=== PATIENT | female | born 1945 | race Caucasian/White ===

== ENCOUNTER → 2016-12-31 | Outpatient (CLI) | payer MEDICARE ==
[~2016-12-31] MED LIST: ADVA100A INH; CALC1TAB87 PO; HYDR-3516 PO; MULT-65 PO
[2016-12-31 09:26] LABS: AUTOMATED NEUTROPHIL # 2.6 TH/MM3 (1.8-7.7); BASOPHIL % 0.8 % (0.0-2.0); EOSINOPHIL # 0.1 TH/MM3 (0-0.4); EOSINOPHIL % 1.9 % (0.0-4.0); HEMATOCRIT 41.3 % (35.0-46.0); HEMO FLAGS DIFF FINAL; LYMPH % 29.6 % (9.0-44.0); LYMPHOCYTE # 1.3 TH/MM3 (1.0-4.8); MEAN CELL VOLUME 87.7 FL (80.0-100.0); MEAN CORPUSCULAR HEMOGLOBIN 29.2 PG (27.0-34.0); MEAN CORPUSCULAR HGB CONC 33.3 % (32.0-36.0); MONO % 6.6 % (0.0-8.0); NEUT % 61.1 % (16.0-70.0); PLATELET COUNT 287 TH/MM3 (150-450); RED BLOOD COUNT 4.71 MIL/MM3 (4.00-5.30); RED CELL DISTRIBUTION WIDTH 13.5 % (11.6-17.2); WHITE BLOOD COUNT 4.2 TH/MM3 (4.0-11.0)
[2016-12-31 09:29] LABS: APTT (PATIENT) 26.7 SEC (24.3-30.1); INTERNATIONAL NORMALIZED RATIO 0.9 RATIO; PROTHROMBIN TIME - PATIENT 10.3 SEC (9.8-11.6)
[2016-12-31 09:55] LABS: ANION GAP 7 MEQ/L (5-15); AST (GOT) 19 U/L (15-37); BICARBONATE 27.7 MEQ/L (21.0-32.0); BLOOD UREA NITROGEN 15 MG/DL (7-18); CHLORIDE 104 MEQ/L (98-107); GLOMERULAR FILTRATION RATE 79 ML/MIN (>89); GLUCOSE,FASTING 99 MG/DL (74-99); POTASSIUM 3.8 MEQ/L (3.5-5.1); SODIUM (NA) 139 MEQ/L (136-145)
[2016-12-31 09:56] LABS: ALT (GPT) 22 U/L (10-53)
[2016-12-31 09:58] LABS: ALKALINE PHOSPHATASE 77 U/L (45-117); TOTAL BILIRUBIN ADULT 0.5 MG/DL (0.2-1.0)
[2016-12-31 10:05] LABS: BLOOD, URINE NEG (NEG); GLUCOSE,URINE NEG (NEG); KETONE, URINE NEG (NEG); NITRITE,URINE NEG (NEG); PH, URINE 6.5 (5.0-8.5); URINE COLOR YELLOW (YELLW/STRAW)
[2016-12-31 10:07] LABS: COMMENT (UR) CULT NOT INDICATED; CULTURE IF INDICATED CULT NOT INDICATED
--- NOTE | 2016-12-31 10:14 | RADRPT ---
EXAM DATE/TIME: 12/31/2016 09:03 [place] COMPARISON: No previous studies available for comparison. INDICATIONS : Evaluate for pneumonia, pneumothorax or communicable disease. Pre op colon resection. MEDICAL HISTORY : asthma SURGICAL HISTORY : None. ENCOUNTER: Initial ACUITY: 1 day PAIN SCORE: 0/10 LOCATION: Bilateral chest FINDINGS: Lungs are hyperinflated. Mild central interstitial prominence is noted. Pleural-parenchymal scarring is seen both apices. There is no evidence of consolidating airspace disease or suspicious mass densities. There are no ple ural effusions. Heart and mediastinal structures are unremarkable. CONCLUSION: 1. COPD with chronic central interstitial disease. 2. No evidence of acute consolidating airspace disease Saul Ruiz MD on December 31, 2016 at 10:11 Board Certified Radiologist. This report was verified electronically.
--- NOTE | 2016-12-31 13:20 | EKG ---
Date Performed: 12/31/2016 Time Performed: 08:24:04 PTAGE: 71 years EKG: SINUS BRADYCARDIA POSSIBLE RIGHT VENTRICULAR CONDUCTION DELAY NONSPECIFIC T-WAVE ABNORMALIT Y BORDERLINE ECG NO PREVIOUS TRACING DOCTOR: Malick Bravo Interpretating Date/Time 12/31/2016 13:17:48
== END ==
LOC: CPRE 08:00
PROVIDERS: ATTEND Colon & Rectal Surgery
DX: Z01.812 Encounter for preprocedural laboratory examination (principal); Z01.810 Encounter for preprocedural cardiovascular examination; Z01.811 Encounter for preprocedural respiratory examination; K57.32 Diverticulitis of large intestine without perforation or abscess without bleeding
CPT/HCPCS: 36415; 71020; 80053; 81001; 85025; 85610; 85730; 93005

== ENCOUNTER 2017-01-07 08:17 | Inpatient (IN) | payer MEDICARE ==
[~2017-01-07] VITALS: Ht 160 cm; Wt 60.9 kg
[~2017-01-07 08:17] MED LIST changes: -HYDR-3516 PO
--- NOTE | 2017-01-07 13:06 | PD.HP.UP ---
H&P Update Note The Pre-Admit History and Physical Examination regarding the above named patient was reviewed (including, but not limited to, vital signs, heart, lungs, co-morbid conditions), and upon re-examination it is noted that: the patient's condition has not significantly changed since the last examination. Chaz Causey MD Jan 07, 2017 13:06
[2017-01-07] MEDS ORDERED: ceFAZolin 1,000 MG/NS 100 ML IV SCH ×2 (13:15)
[2017-01-07] MEDS ORDERED: CHLORHEXIDINE GLUCONATE 2 % 1 PACK (2 CLOTHS) TOPICAL PRN (13:15)
[2017-01-07] MEDS ORDERED: METRONIDAZOLE 500 MG/100 ML ISONTONIC SOLN IV SCH (13:15)
[2017-01-07] MEDS ORDERED: INSULIN HUMAN REGULAR 1,000 UNITS/10 ML VIAL SQ PRN (13:15)
[2017-01-07] MEDS ORDERED: ALVIMOPAN 12 MG CAPSULE - On Call PO SCH (13:15)
[2017-01-07] MEDS ORDERED: METOPROLOL TARTRATE 25 MG TAB PO PRN (13:15)
[2017-01-07] MEDS ORDERED: LACTATED RINGER'S 1000 ML IV PRN (13:15)
[2017-01-07] MEDS ORDERED: SODIUM CHLORID 0.9% 500 ML IV PRN (13:15)
[2017-01-07] MEDS ORDERED: POVIDONE IODINE 5% (ANTISEPSIS KIT) 4 APPLICATIONS EACH NARE PRN (13:15)
[2017-01-07] MEDS ORDERED: BUPIVACAINE HCL PF 0.5% 30 ML VIAL ONE (13:16)
[2017-01-07] MEDS ORDERED: DEXT 5%-NACL 0.9% 1000 ML INJ 1,000 ML IV SCH (13:30)
--- NOTE | 2017-01-07 14:54 | PD.OP ---
Operative Report Date of Surgery: Jan 07, 2017 Preoperative Diagnosis: (1) Diverticulitis Postoperative Diagnosis: (1) Diverticulitis Procedure: Cystoscopy and placement of bilateral ureteral catheters Anesthesia: General Surgeon: Cornell Dias Shelver(s): None Operation and Findings: Indication for procedures: Consult intraoperatively to pass bilateral ureteral catheters to aid in visualization of this patient's ureters during her colorectal procedure. Urologic procedures in detail: Concurred with the colorectal surgeons, I proceeded with cystoscopy and placement of bilateral ureteral catheters as follows: Initially cystoscopic evaluation was performed utilizing the rigid cystoscope with the 22 Turkish sheath and 30 lens. Both right and left ureteral orifices were in correct anatomic position effluxing clear yellow urine , there were no bladder mucosal lesions, calculi or diverticula formation. I then proceeded to pass a sensor 0.035 wire of the patient's left ureter to a small amount of resistance was met. A 6 Turkish open-ended catheter was then advanced over this wire 25 cm in a cephalad direction. With the catheter placed the guidewire was withdrawn and reintroduced through a secondary site of the cystoscope. In similar fashion, the contralateral side was accomplished. With both catheters in place, the cystoscope and wire withdrawn and a 16 Turkish 10 cc Johnson catheter was placed. Both ureteral catheters were next anchored to the Johnson via a connector in all 3 catheters placed to gravity drainage. This completes urologic surgery portion of combined procedures on this patient. Cornell Dias MD Jan 07, 2017 14:54
[2017-01-07] MEDS ORDERED: SUGAMMADEX SODIUM 200 MG/2 ML VIAL IV PUSH ONE ×2 (15:34)
[2017-01-07] MEDS ORDERED: BUPIVACAINE HCL PF 0.5% 30 ML VIAL INFIL ONE (15:36)
[2017-01-07] MEDS ORDERED: BUPIVACAINE HCL PF 0.5% 30 ML VIAL NB SCH (16:00)
[2017-01-07] MEDS ORDERED: POTASSIUM CHLOR 40 MEQ PREMIX 100 ML IV PRN (16:00)
[2017-01-07] MEDS ORDERED: ACETAMINOPHEN 325 MG TAB PO PRN (16:00)
[2017-01-07] MEDS ORDERED: POTASSIUM CHLOR 20 MEQ PREMIX 100 ML IV PRN (16:00)
[2017-01-07] MEDS ORDERED: MORPHINE SULFATE 30 MG/30 ML PCA IV SCH (16:00)
[2017-01-07] MEDS ORDERED: Post-op Orders (for Pharmacy) MISC XX ONE (16:00)
[2017-01-07] MEDS ORDERED: ENALAPRILAT 2.5 MG/2 ML VIAL IV PUSH PRN (16:00)
[2017-01-07] MEDS ORDERED: KETOROLAC TROMETHAMINE 30 MG/ML (IVP) VIAL IVP PRN (16:00)
[2017-01-07] MEDS ORDERED: SODIUM CHLORIDE 0.9% FLUSH 5 ML FLUSH IVF PRN (16:00)
[2017-01-07] MEDS ORDERED: NALOXONE HCL 0.4 MG/ML AMP IV PUSH PRN (16:00)
[2017-01-07] MEDS ORDERED: ACETAMINOPHEN/HYDROcodone 325 MG/5 MG TAB PO PRN ×2 (16:00)
[2017-01-07] MEDS ORDERED: BENZOCAINE 6 MG/MENTHOL 10 MG LOZENGE BUCCAL PRN (16:00)
[2017-01-07] MEDS ORDERED: ENALAPRILAT 1.25 MG/ML VIAL IV PUSH PRN (16:00)
[2017-01-07] MEDS ORDERED: *morphine SULFATE 8 MG/ML PERIprocedure ONLY ONE ×3 (16:32→17:33)
[2017-01-07] MEDS: D5-NS + KCL 20 MEQ INJ 1,000 ML IV SCH ×2 (16:40→22:16)
[2017-01-07] MEDS ORDERED: *ONDANSETRON 4 MG VIAL PERIprocedural Use ONLY ONE ×2 (17:33→21:10)
[2017-01-07] MEDS ORDERED: *HYDROmorphone PF 1 MG VIAL PERIprocedural Use ONLY ONE (17:46)
[2017-01-07] MEDS: BUDESONIDE-FORMOTEROL 80/4.5 MCG INHALER INH SCH (21:00)
[2017-01-07] MEDS: SODIUM CHLORIDE 0.9% FLUSH 5 ML FLUSH IVF SCH (21:00)
[2017-01-07] MEDS ORDERED: NON-FORMULARY DRUG (Fluticasone-Salmeterol Inh (Advair Diskus Inh) 1 PUFF) INH SCH (21:00)
[2017-01-07 21:30] VITALS: BP 127/79; PULSE 93; RESP 18; TEMP 97.9; O2SAT 100
[2017-01-07 22:00] VITALS: PULSE 90
[2017-01-07] MEDS: PCA - TOTAL MG MORPHINE DELIVERED PER SHIFT SCH (22:00)
[2017-01-07] MEDS: metroNIDAZOLE 500 MG INJ 100 ML IV SCH (22:06)
[2017-01-07] MEDS: METOCLOPRAMIDE HCL 10 MG/2 ML VIAL IVS SCH (22:06)
[2017-01-07 23:00] VITALS: PULSE 92
[2017-01-07 23:30] VITALS: BP 145/81; PULSE 106; RESP 16; TEMP 97.6; O2SAT 100
[2017-01-08] VITALS (22 sets, daily range): BP systolic 114–148; BP diastolic 59–68; PULSE 55–96; RESP 15–18; TEMP 97.4–99.1; O2SAT 18–100
[2017-01-08] MEDS: D5-NS + KCL 20 MEQ INJ 1,000 ML IV SCH ×4 (04:19→23:41)
[2017-01-08] MEDS: ONDANSETRON HCL 4 MG/2 ML VIAL IV PUSH PRN ×3 (04:53→19:50)
[2017-01-08] MEDS: PCA - TOTAL MG MORPHINE DELIVERED PER SHIFT SCH ×3 (06:00→21:38)
[2017-01-08] MEDS: metroNIDAZOLE 500 MG INJ 100 ML IV SCH ×2 (06:09→13:29)
[2017-01-08 06:45] LABS: BASOPHIL % 0.1 % (0.0-2.0); HEMATOCRIT 37.6 % (35.0-46.0); HEMO FLAGS DIFF FINAL; LYMPH % 3.3 % (9.0-44.0); LYMPHOCYTE # 0.4 TH/MM3 (1.0-4.8); MEAN CORPUSCULAR HGB CONC 33.3 % (32.0-36.0); MONO % 6.4 % (0.0-8.0); NEUT % 90.2 % (16.0-70.0); PLATELET COUNT 296 TH/MM3 (150-450); RED BLOOD COUNT 4.32 MIL/MM3 (4.00-5.30); RED CELL DISTRIBUTION WIDTH 13.4 % (11.6-17.2); WHITE BLOOD COUNT 12.2 TH/MM3 (4.0-11.0)
[2017-01-08 06:57] LABS: BICARBONATE 23.5 MEQ/L (21.0-32.0); POTASSIUM 4.2 MEQ/L (3.5-5.1)
[2017-01-08] MEDS: PANTOPRAZOLE SOD 40 MG DELAYED RELEASE TAB PO SCH (08:41)
[2017-01-08] MEDS: METOCLOPRAMIDE HCL 10 MG/2 ML VIAL IVS SCH ×2 (08:41→21:32)
[2017-01-08] MEDS: PANTOPRAZOLE SODIUM 40 MG VIAL IVP SCH (08:41)
[2017-01-08] MEDS: ALVIMOPAN 12 MG CAPSULE - Post-op dosing PO SCH ×2 (08:42→21:32)
[2017-01-08] MEDS: BUDESONIDE-FORMOTEROL 80/4.5 MCG INHALER INH SCH ×2 (08:55→21:33)
[2017-01-08] MEDS: SODIUM CHLORIDE 0.9% FLUSH 5 ML FLUSH IVF SCH ×2 (09:00→21:00)
--- NOTE | 2017-01-08 11:23 | HHI.PR ---
Subjective Remarks C/R surg POD #1 afebrile, VSS UO good esmer PO Objective - Vital Signs Date Time Temp Pulse Resp B/P (MAP) Pulse Ox O2 Delivery O2 Flow Rate FiO2 01/08/17 11:00 98.7 80 16 114/68 (83) 97 01/07/17 21:00 Nasal Cannula 3 Result Diagram: 01/08/17 0600 01/08/17 0600 Objective Remarks PE alert Abd - soft, wound dry A/P Assessment and Plan Imp: stable post-op OOB dcer IVF tx to floor Chaz Causey MD Jan 08, 2017 11:22
--- NOTE | 2017-01-08 14:07 | EKG ---
Date Performed: 01/07/2017 Time Performed: 17:38:32 PTAGE: 71 years EKG: SINUS BRADYCARDIA NONSPECIFIC ST & T-WAVE ABNORMALITY BORDERLINE ECG PREVIOUS TRACING : 12/31/2016 08.24 DOCTOR: Ivan Vallejo Interpretating Date/Time 01/08/2017 13:58:35
[2017-01-08] MEDS ORDERED: ALVIMOPAN 12 MG CAPSULE PO SCH (21:00)
--- NOTE | 2017-01-08 23:53 | MP ---
cc: FLOYD LOPEZ M.D. DATE OF SURGERY: 01/07/2017 PREOPERATIVE DIAGNOSIS: Diverticulitis with drained abscess. POSTOPERATIVE DIAGNOSIS: Chronic diverticulitis with previously drained abscess. OPERATION: Exploratory laparotomy with proctosigmoidectomy and low pelvic anastomosis. SURGEON Dr. Lopez BASKET FILLER: Dr. Kishore Hinojosa PROCEDURE The patient was placed in the supine position. After adequate general anesthesia her legs were placed in the Truxton stirrups and supported appropriately. The abdomen and perineum were then prepped with Betadine solution and draped in the usual sterile fashion. With Dr. Hinojosa's assistance the abdomen was opened through an infraumbilical transverse incision dividing the rectus muscles with electrocautery. Exploration revealed a loop of sigmoid colon which was tethered and stuck down into the left pelvic sidewall consistent with diverticular disease and previously drained abscess. The bowel was folded over itself and the bowel distal to the inflammatory process did appear to be normal heading down toward the rectum. The proximal bowel was palpated very carefully and felt to be pretty unremarkable. The small bowel was run from the ligament of Treitz down to the ileocecal valve and felt to be normal. The liver and gallbladder were unremarkable. The stomach and duodenum were normal. The great vessels were of normal caliber and fairly soft. First the sigmoid colon was mobilized medially by dividing along the white line of Toldt. The left ureter was identified and carefully preserved. Dissection proceeded up the left gutter freeing the left colon off the retroperitoneum, taking down the attachments of the splenic flexure and entering the lesser sac. The right retroperitoneal space was then opened and the bowel dissected off the presacral fascia. The pedicle for the superior hemorrhoidal vessels identified divided between Zainab's obtaining hemostasis with Vicryl ties. Anteriorly the bowel was mobilized off the left pelvic sidewall, dividing what appeared to be granulation tissue and probably old abscess cavity in the region of the left adnexa. After full mobilization there appeared to be softer bowel in the proximal rectum. After full rectal mobilization the bowel was divided taking the mesorectum with electrocautery and finally dividing the bowel between a pursestring suture device and a Lisandra clamp. The bowel was then sized to reach the rectal pouch without tension and with good blood supply leaving the left colic vessels. At the appropriate point the marginal artery was taken in the bowel divided between a pursestring suture device and a Lisandra clamp. The end of bowel was sized to accept a 29-mm EEA stapling anvil and this was secured with a pursestring suture. Dr. Hinojosa inserted the EEA instrument transanally and under direct vision was brought up to the end of the rectal pouch and the pursestring suture tied. The stapler was then reassembled in the bowel line properly. The staple closed and fired. Upon withdrawal, two complete doughnuts of tissue were seen. Gentle insufflation did confirm an airtight anastomosis. The abdomen was then irrigated copiously with normal saline. Adequate hemostasis was achieved. Transverse incision was closed anatomically in two layers using #1 PDS sutures to reapproximate respective fascial layers. On-Q catheters were placed into the rectus sheath on both sides and brought up through the subcutaneous tunnels above the transverse incision. The subcu tissues irrigated and the skin closed with a running subcuticular Vicryl suture. Wound area washed with normal saline and dried, sterile dressing of Telfa and gauze applied. The patient tolerated the procedure quite well and was brought to recovery room in stable condition. The sponge and needle counts were correct at the end of the procedure. MD MONA Gallegos/SAPNA /11:12 PM /11:38 PM
[2017-01-09] VITALS: BP 150/74; PULSE 71; RESP 16; TEMP 98.9; O2SAT 96
[2017-01-09 04:00] VITALS: BP 148/70; PULSE 67; RESP 17; TEMP 99.5; O2SAT 97
[2017-01-09] MEDS: D5-NS + KCL 20 MEQ INJ 1,000 ML IV SCH (05:36)
[2017-01-09] MEDS: PCA - TOTAL MG MORPHINE DELIVERED PER SHIFT SCH (05:57)
--- NOTE | 2017-01-09 07:42 | HHI.PR ---
Subjective Remarks C/R surg POD #2 afebrile, VSS UO good esmer PO slow +flatus Objective - Vital Signs Date Time Temp Pulse Resp B/P (MAP) Pulse Ox O2 Delivery O2 Flow Rate FiO2 01/09/17 05:57 18 01/09/17 04:00 99.5 67 148/70 (96) 97 01/07/17 21:00 Nasal Cannula 3 Result Diagram: 01/08/17 0600 01/08/17 0600 Objective Remarks PE alert Abd - soft, wound dry, stenrt dc'd A/P Assessment and Plan Imp: OOB dcer IVF incr PO Chaz Causey MD Jan 09, 2017 07:42
[2017-01-09 08:00] VITALS: BP 163/71; PULSE 65; RESP 17; TEMP 98.9; O2SAT 97
[2017-01-09] MEDS: METOCLOPRAMIDE HCL 10 MG/2 ML VIAL IVS SCH ×2 (08:09→21:00)
[2017-01-09] MEDS: ALVIMOPAN 12 MG CAPSULE - Post-op dosing PO SCH ×2 (08:09→21:48)
[2017-01-09] MEDS: PANTOPRAZOLE SOD 40 MG DELAYED RELEASE TAB PO SCH (08:09)
[2017-01-09] MEDS: SODIUM CHLORIDE 0.9% FLUSH 5 ML FLUSH IVF SCH ×2 (08:09→21:00)
[2017-01-09] MEDS: PANTOPRAZOLE SODIUM 40 MG VIAL IVP SCH (08:09)
[2017-01-09] MEDS: BUDESONIDE-FORMOTEROL 80/4.5 MCG INHALER INH SCH ×2 (08:10→21:52)
[2017-01-09 08:29] LABS: AUTOMATED NEUTROPHIL # 10.4 TH/MM3 (1.8-7.7); BASOPHIL % 0.1 % (0.0-2.0); HEMATOCRIT 34.7 % (35.0-46.0); HEMO FLAGS DIFF FINAL; LYMPH % 8.2 % (9.0-44.0); MEAN CELL VOLUME 87.7 FL (80.0-100.0); MEAN CORPUSCULAR HEMOGLOBIN 29.1 PG (27.0-34.0); MEAN CORPUSCULAR HGB CONC 33.2 % (32.0-36.0); MONO % 6.7 % (0.0-8.0); PLATELET COUNT 239 TH/MM3 (150-450); RED BLOOD COUNT 3.96 MIL/MM3 (4.00-5.30); WHITE BLOOD COUNT 12.3 TH/MM3 (4.0-11.0)
[2017-01-09 08:56] LABS: BICARBONATE 23.5 MEQ/L (21.0-32.0); POTASSIUM 4.3 MEQ/L (3.5-5.1)
[2017-01-09 12:00] VITALS: BP 139/70; PULSE 78; RESP 17; TEMP 100.3; O2SAT 98
[2017-01-09 16:00] VITALS: BP 156/72; PULSE 65; RESP 17; TEMP 99; O2SAT 95
[2017-01-09] MEDS: ONDANSETRON HCL 4 MG/2 ML VIAL IV PUSH PRN (17:20)
[2017-01-09 21:05] VITALS: BP 151/77; PULSE 77; RESP 19; TEMP 97.4; O2SAT 96
[2017-01-10 00:17] VITALS: BP 156/73; PULSE 76; RESP 20; TEMP 99.4; O2SAT 97
[2017-01-10 04:04] VITALS: BP 159/86; PULSE 72; RESP 22; TEMP 97.7; O2SAT 98
[2017-01-10] MEDS: ONDANSETRON HCL 4 MG/2 ML VIAL IV PUSH PRN (04:31)
[2017-01-10 08:00] VITALS: BP 161/73; PULSE 62; RESP 17; TEMP 98.1; O2SAT 96
[2017-01-10] MEDS: SODIUM CHLORIDE 0.9% FLUSH 5 ML FLUSH IVF SCH (09:00)
[2017-01-10] MEDS: PANTOPRAZOLE SODIUM 40 MG VIAL IVP SCH (09:00)
[2017-01-10] MEDS: METOCLOPRAMIDE HCL 10 MG/2 ML VIAL IVS SCH (10:33)
[2017-01-10] MEDS: PANTOPRAZOLE SOD 40 MG DELAYED RELEASE TAB PO SCH (10:35)
[2017-01-10] MEDS: ALVIMOPAN 12 MG CAPSULE - Post-op dosing PO SCH (10:35)
[2017-01-10 12:00] VITALS: BP 159/68; PULSE 65; RESP 17; TEMP 97.9; O2SAT 97
[2017-01-10] MEDS: BUDESONIDE-FORMOTEROL 80/4.5 MCG INHALER INH SCH (15:29)
[2017-01-10 16:00] VITALS: BP 161/69; PULSE 61; RESP 17; TEMP 97.1; O2SAT 99
--- NOTE | 2017-01-10 17:07 | HHI.PR ---
Subjective Remarks C/R surg POD #3 afebrile, VSS UO good esmer PO slow +flatus Objective - Vital Signs Date Time Temp Pulse Resp B/P (MAP) Pulse Ox O2 Delivery O2 Flow Rate FiO2 01/10/17 16:00 97.1 61 17 161/69 (99) 99 01/07/17 21:00 Nasal Cannula 3 Result Diagram: 01/09/1772101/09/17721 Objective Remarks PE alert Abd - soft, wound dry, On-q dc'd A/P Assessment and Plan Imp: OOB dcer IVF incr PO dc plans Chaz Causey MD Jan 10, 2017 17:07
[2017-01-10] MEDS ORDERED: HYDR-3516 PO (17:10)
== END 2017-01-10 18:24 | disposition home or self-care (01) | DRG 331 ==
LOC: HSDI 11:53 → HCIN 21:17 → N07A 01-08 18:35
PROVIDERS: ADMIT Colon & Rectal Surgery; ATTEND Colon & Rectal Surgery
PROC: 0WJP0ZZ Inspection of Gastrointestinal Tract, Open Approach (ICD-10-PCS; 2017-01-07)
PROC: 0WJJ0ZZ Inspection of Pelvic Cavity, Open Approach (ICD-10-PCS; 2017-01-07)
PROC: 0T788DZ Dilation of Bilateral Ureters with Intraluminal Device, Via Natural or Artificial Opening Endoscopic (ICD-10-PCS; 2017-01-07)
PROC: 0T9B70Z Drainage of Bladder with Drainage Device, Via Natural or Artificial Opening (ICD-10-PCS; 2017-01-07)
PROC: 0DBN0ZZ Excision of Sigmoid Colon, Open Approach (ICD-10-PCS; principal; 2017-01-07 13:56)
PROC: 0DBP0ZZ Excision of Rectum, Open Approach (ICD-10-PCS; 2017-01-07 13:56)
DX: K57.32 Diverticulitis of large intestine without perforation or abscess without bleeding (principal)
CPT/HCPCS: 80048; 85025; 86850; 86900; 86901; 88307; 93005; 94150; C9113; J0690; J1170; J1885; J2270; J2405; J2765; J3480; J7120